=== PATIENT | female | born 1960 | race Caucasian/White ===

== ENCOUNTER 2017-02-04 12:25 | Emergency (ER) | payer OTHER ==
[~2017-02-04] VITALS: Ht 162.6 cm; Wt 76.0 kg
[2017-02-04 12:27] VITALS: Ht 162.6 cm; Wt 76.0 kg
--- NOTE | 2017-02-04 13:16 | EMERGENCY ROOM VISIT NOTE ---
History Report prepared by Gallito: Erlinda Peña Under the Supervision of: Dr. Alvarez Vizcaino M.D. First contact with patient: 12:49 Chief Complaint: ARM PAIN Stated Complaint: NUMBNESS IN RIGHT ARM AND THROBBING PAIN History of Present Illness The patient is a 56 year old female who presents to the Emergency Room with complaints of resolved bilateral arm numbness that started 2 hours ago, around 1100. The patient states that she experienced "deep muscle pain" in her right shoulder then she developed numbness in her right arm. The numbness then went into her left arm and progressed into her left hand. The numbness resolved after 3-4 minutes then it came back in the same order 1 hour later. With the second episode, she also developed "tension" in her neck. The numbness resolved on its own again and she does not have any numbness now. The patient was sitting at her desk when her symptoms started. The patient called her PCP who recommended coming into the ED. The patient is from [place] and states that she works in the area. The patient states that she is also experiencing dizziness and felt unsteady on her feet when she was experiencing the numbness. The patient denies fevers, chills, visual changes, speech problems, facial numbness, chest pain, shortness of breath, and abdominal pain. The patient states that she has a history of chronic lower back problems. She states that recently her lower back has been experiencing muscular problems. The patient adds that she has been experiencing difficulty sleep recently but she is unsure of why. The patient denies any history of neck problems and suspects that she has arthritis in her back that may also be in her neck. Source of History: patient Onset: 2 hours ago, around 1100 Position: arm (bilateral) Quality: numbness Timing: resolved Associated Symptoms: + neck pain (tension), + back pain (chronic lower), No fevers, No chills, No chest pain, No SOB, No abdominal pain Note: dizziness, unsteady on feet, no visual changes, no speech problems, no facial numbness Review of Systems All systems have been listed, reviewed, and are negative other than those previously mentioned. Please see Additional Medical History Sheet. Past Medical & Surgical Surgical Problems: (1) History of skin graft Family History Cancer Kidney disease Kidney stones Social History Smoking Status: Former Smoker Alcohol Use: none Drug Use: none Marital Status: Housing Status: lives with family Occupation Status: employed Current/Historical Medications No Active Prescriptions or Reported Meds Allergies Coded Allergies: No Known Allergies (Unverified , 02/04/17) Physical Exam Vital Signs Date Time Temp Pulse Resp B/P (MAP) Pulse Ox O2 Delivery O2 Flow Rate FiO2 02/04/17 15:08 36.7 46 16 95/71 98 02/04/17 14:10 46 16 95/71 98 Room Air 02/04/17 12:27 36.7 44 18 148/77 98 Physical Exam GENERAL: Patient awake, alert, oriented x 3. Patient follows commands. Patient does not appear toxic. Patient is adequately hydrated and well- nourished. SKIN: No erythema, pallor, cyanosis or rash HEENT: Normal head, pupils equal, reactive to light and accommodation. Ears normal. Oral cavity and posterior pharynx appear normal. Neck: Without adenopathy, no neck vein distention. LUNGS: Clear to auscultation. No wheezes, no rales, no rhonchi. HEART: No murmurs. No gallops. No rubs ABDOMEN: No masses, no rebound, no hepatomegaly or splenomegaly. EXTREMITIES: No signs of trauma. No pedal or pretibial edema. No calf or thigh tenderness. NEUROLOGIC: Cranial nerves II-XII within normal limits. No gross motor sensory function deficits. Medical Decision & Procedures ER Provider Diagnostic Interpretation: CT results are interpretations by the radiologist and per my review. 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 Ventricles and sulci normal in size. Brain parenchyma normal in appearance with preserved sadler-white differentiation. No mass effect or midline shift. No hemorrhage or acute territorial infarct. No extra-axial fluid collection. Paranasal sinuses and mastoid air cells clear. Calvarium intact. IMPRESSION: 1. No acute intracranial pathology. Electronically signed by: Lb King M.D. 02/04/2017 2:22 PM Dictated Date/Time: 02/04/2017 2:20 PM Laboratory Results 02/04/17 13:29 02/04/17 13:29 Test 02/04/17 13:29 Red Blood Count 4.09 M/uL (4.2-5.4) Mean Corpuscular Volume 87.5 fL (80-100) Mean Corpuscular Hemoglobin 30.6 pg (25-34) Mean Corpuscular Hemoglobin Concent 34.9 g/dl (32-36) RDW Standard Deviation 39.0 fL (36.4-46.3) RDW Coefficient of Variation 12.1 % (11.5-14.5) Mean Platelet Volume 9.9 fL (7.4-10.4) Anion Gap 5.0 mmol/L (3-11) Est Creatinine Clear Calc Drug Dose 74.7 ml/min Estimated GFR () 88.8 Estimated GFR (Non- 76.6 BUN/Creatinine Ratio 19.0 (10-20) Calcium Level 9.1 mg/dl (8.5-10.1) Troponin I < 0.015 ng/ml (0-0.045) Laboratory results as stated above per my review. ECG Indication: back/shoulder pain Rate (beats per minute): 36 Rhythm: sinus bradycardia Findings: no acute ischemic change, no ectopy ED Course 1311: Past medical records reviewed. The patient was evaluated in room C6. A complete history and physical examination was performed. 1435: Upon reevaluation, the patient appeared to have improvement of her symptoms. I discussed today's findings with her. She verbalized agreement of the treatment plan. She was discharged home. Medical Decision Nurses notes reviewed. Medical history sheet reviewed. Differential diagnosis includes but is not limited to: CVA, TIA, cervical radiculopathy, degenerative joint disease. Multiple labs, EKG and imaging were obtained. Please see above. The patient is bradycardic but she has a long history of being bradycardic. CT does not show any signs of acute CVA or TIA. Blood work was felt to be grossly within normal limits other than a slightly elevated chloride. The patient appears to have a cervical radiculopathy causing her symptoms. The patient will continue to take ibuprofen as needed for her symptoms. She is to follow-up with a family physician regarding these symptoms and her bradycardia. Medication Reconcilliation Current Medication List: was personally reviewed by me Blood Pressure Screening Patient's blood pressure: Low blood pressure Impression Primary Impression: Cervical radiculopathy Additional Impression: Bradycardia Scribe Attestation The scribe's documentation has been prepared under my direction and personally reviewed by me in its entirety. I confirm that the note above accurately reflects all work, treatment, procedures, and medical decision making performed by me. Departure Information Dispostion Home / Self-Care Prescriptions No Active Prescriptions or Reported Meds Referrals No Doctor, Assigned (PCP) Forms HOME CARE DOCUMENTATION FORM, IMPORTANT VISIT INFORMATION Patient Instructions ED Cervical Radiculopathy, My [facility] Additional Instructions 600 mg ibuprofen every 6 hours as needed for tingling/numbness in your arms. Follow-up with your family physician within the next 7-10 days regarding these symptoms and your low heart rate. Problem Qualifiers
[2017-02-04 13:48] LABS: HEMATOCRIT 35.8 % (37-47); MEAN CELL VOLUME 87.5 fL (80-100); MEAN CORPUSCULAR HEMOGLOBIN 30.6 pg (25-34); MEAN CORPUSCULAR HGB CONC 34.9 g/dl (32-36); MEAN PLATELET VOLUME 9.9 fL (7.4-10.4); PLATELET COUNT 219 K/uL (130-400); RED BLOOD COUNT 4.09 M/uL (4.2-5.4); WHITE BLOOD COUNT 6.09 K/uL (4.8-10.8)
[2017-02-04 13:58] LABS: BLOOD UREA NITROGEN 16 mg/dl (7-18); CALCIUM 9.1 mg/dl (8.5-10.1); CARBON DIOXIDE 29 mmol/L (21-32); CHLORIDE 108 mmol/L (98-107); CREATININE 0.86 mg/dl (0.60-1.20); GLUCOSE 82 mg/dl (70-99); POTASSIUM 3.6 mmol/L (3.5-5.1); SODIUM 142 mmol/L (136-145)
--- NOTE | 2017-02-04 14:24 | DIAGNOSTIC IMAGING REPORT ---
HEAD WITHOUT CONTRAST (CT) CLINICAL HISTORY: 56 years-old Female presenting with TIA symptoms, numbness of the right arm. TECHNIQUE: Multidetector CT imaging of the head was performed without the use of intravenous contrast. IV contrast: None. A dose lowering technique was used consistent with the principles of ALARA (as low as reasonably achievable). COMPARISON: None. CT DOSE (mGy.cm): The estimated cumulative dose is 638.56 mGycm. 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 Ventricles and sulci normal in size. Brain parenchyma normal in appearance with preserved sadler-white differentiation. No mass effect or midline shift. No hemorrhage or acute territorial infarct. No extra-axial fluid collection. Paranasal sinuses and mastoid air cells clear. Calvarium intact. IMPRESSION: 1. No acute intracranial pathology. Electronically signed by: Lb King M.D. 02/04/2017 2:22 PM Dictated Date/Time: 02/04/2017 2:20 PM
[2017-02-04 15:08] VITALS: BP 95/71; PULSE 46; TEMP 36.7; O2SAT 98
== END 2017-02-04 15:09 | disposition home or self-care (01) ==
LOC: C.EDB 12:28 → C.EDA 15:09
DX: M54.12 Radiculopathy, cervical region (principal); R00.1 Bradycardia, unspecified; R42 Dizziness and giddiness; Z87.891 Personal history of nicotine dependence; Z98.890 Other specified postprocedural states; Z84.1 Family history of disorders of kidney and ureter